=== PATIENT | female | born 1955 | race African-American/Black ===

== ENCOUNTER 2018-03-05 20:42 | Emergency (ER) | payer OTHER ==
[2018-03-05 22:58] LABS: ADD MAN DIFF? NO
[2018-03-05 22:59] LABS: BASOPHILS % 0.4 % (0.0-2.0); EOSINOPHILS # 0.1 10^3/ul (0.0-0.5); EOSINOPHILS % 1.6 % (0.0-7.0); HEMATOCRIT 41.3 % (37.0-47.0); HEMOGLOBIN 13.9 g/dl (12.0-16.0); LYMPHOCYTES # 3.5 10^3/ul (0.8-2.9); LYMPHOCYTES % 39.3 % (15.0-51.0); MEAN CORPUSCULAR HEMOGLOBIN 32.4 pg (29.0-33.0); MEAN CORPUSCULAR HGB CONC 33.7 g/dl (32.0-37.0); MEAN CORPUSCULAR VOLUME 96.3 fl (82.0-101.0); MEAN PLATELET VOLUME 10.6 fl (7.4-10.4); MONOCYTE # 0.5 10^3/ul (0.3-0.9); NEUTROPHIL # 4.7 10^3/ul (1.6-7.5); NEUTROPHILS % 52.4 % (39.0-77.0); PLATELET COUNT 278 10^3/UL (140-415); RED BLOOD COUNT 4.29 10^6/ul (4.20-5.40); RED CELL DISTRIBUTION WIDTH 13.4 % (11.5-14.5)
[2018-03-05 22:59] LABS: WHITE BLOOD COUNT 8.9 10^3/ul (4.8-10.8)
[2018-03-05] MEDS: ASPIRIN 325 MG TAB PO (22:59)
[2018-03-05 23:17] LABS: ANION GAP 15 (8-16); BLOOD UREA NITROGEN 18 mg/dl (7-20); CALCIUM 9.3 mg/dl (8.4-10.2); CARBON DIOXIDE 26 mmol/L (21-31); CHLORIDE 105 mmol/L (97-110); CREATININE 1.04 mg/dl (0.44-1.00); GLUCOSE 129 mg/dl (70-220); SODIUM 142 mmol/L (135-144)
[2018-03-05 23:29] LABS: B-TYPE NATRIURETIC PEPTIDE 15 PG/ML (0-125)
[2018-03-05 23:30] LABS: TROPONIN-I < 0.012 ng/ml (0.00-0.12)
[2018-03-06] MEDS: LIDOCAINE/MYLANTA 40 ML BTL PO (00:28)
== END 2018-03-06 01:09 | disposition home or self-care (01) ==
LOC: E/R 03-06 01:09
DX: R07.89 Other chest pain (principal); I10 Essential (primary) hypertension; E11.9 Type 2 diabetes mellitus without complications; J45.909 Unspecified asthma, uncomplicated; Z79.84 Long term (current) use of oral hypoglycemic drugs; Z87.891 Personal history of nicotine dependence
CPT/HCPCS: 36415; 71045; 80048; 83880; 84484; 85025; 93005; 99285-25

== ENCOUNTER 2018-06-27 12:20 | Emergency (ER) | payer OTHER ==
[2018-06-27] MEDS: predniSONE 20 MG TAB PO (12:37)
[2018-06-27] MEDS: KETOROLAC 30 MG INJ IM (12:38)
[2018-06-27 12:49] LABS: URINE BLOOD (Dip) POC 2+ (NEGATIVE); URINE KETONES (Dip) POC Negative (NEGATIVE); URINE LEUKOCYTE EST (Dip) POC Trace (NEGATIVE); URINE NITRITE (Dip) POC Negative (NEGATIVE); URINE TOTAL PROTEIN POC Negative (NEGATIVE)
[2018-06-27] MEDS: DIAZEPAM 5 MG TAB PO (13:48)
== END 2018-06-27 14:22 | disposition home or self-care (01) ==
LOC: FTE 12:20
DX: M54.41 Lumbago with sciatica, right side (principal); I10 Essential (primary) hypertension; E11.9 Type 2 diabetes mellitus without complications; J45.909 Unspecified asthma, uncomplicated; Z79.84 Long term (current) use of oral hypoglycemic drugs; Z87.891 Personal history of nicotine dependence
CPT/HCPCS: 72131; 73502; 73510; 81003; 96372; 99285-25